=== PATIENT | female | born 1985 | race Caucasian/White ===

== ENCOUNTER 2016-11-05 21:06 | Emergency (ER) | payer OTHER ==
--- NOTE | 2016-11-05 23:47 | DIAGNOSTIC IMAGING REPORT ---
PROCEDURE: US COMPLETE PELVIC W/TRANSVAG INDICATION: PAIN, initial encounter TECHNIQUE: Transabdominal and endovaginal bran scale and color Doppler sonographic images of the female pelvis were obtained. COMPARISON: None. FINDINGS: TRANSABDOMINAL SCANS: Anteverted uterus measures 10.4 x 5.5 x 5 cm. 1.7 cm left mid submucosal fibroid. TRANSVAGINAL SCANS: Endometrium measures 6 mm. Left ovary measures 3 x 2.2 x 2.0 cm with a 1.2 cm hemorrhagic cyst. Right ovary measures 2.6 x 1.0 x 1.0 cm. There is vascular flow to both ovaries. There is physiologic free fluid. IMPRESSION: 1. 1.7 cm fibroid. 2. 1.2 cm left ovarian hemorrhagic cyst.
--- NOTE | 2016-11-06 00:02 | DIAGNOSTIC IMAGING REPORT ---
PROCEDURE: CT ABD/PELVIS WITH CONTRAST CLINICAL INDICATION: ABDOMINAL PAIN TECHNIQUE: 95 ml of Isovue 300 were injected intravenously and axial images were obtained of the entire abdomen and pelvis with sagittal and coronal reformations. COMPARISON: Pelvic ultrasound 11/05/2016 FINDINGS: ABDOMEN: Lung base are clear. Heart size is normal. 8 cm long segment of the splenic flexure and descending colon with wall thickening, adjacent infiltration of the fat and small amount of fluid in the pericolic gutter associated with two diverticula, consistent with diverticulitis. No evidence of free air or abscess. Small bowel is unremarkable. Contracted gallbladder. Liver, pancreas, spleen, adrenal glands and kidneys are normal. Normal abdominal aorta. PELVIS: Normal appendix. Bilateral tubal ligation clips. Fibroid changes of the uterus. 1.3 cm left ovarian cyst with small amount of free fluid the pelvis. Normal bladder. Left L5 spondylolysis. IMPRESSION: 1. 8 cm long segment of the splenic flexure and descending colon inflammatory changes with two diverticula consistent with diverticulitis. No evidence of free air or abscess. Colitis is less likely. 2. 1.3 cm left ovarian cyst with small amount of free fluid in the pelvis 3. Bilateral of tubal ligation 4. Results discussed with ELIZABETH Call All CT scans at this facility use dose modulation, iterative reconstruction, and/or weight-based dosing when appropriate to reduce radiation dose to as low as reasonably achievable.
--- NOTE | 2016-11-06 00:06 | ED NURSING NOTES ---
Clinical Report - Nurses [facility] [address] [place] [address] 11/05/2016 21:08 Patient: STEFFANIE VELAZQUEZ TRIAGE Triage time 21:20. Acuity: LEVEL 3. Chief Complaint: ABDOMINAL PAIN and (RLQ pain 06/06, intermitant.). Alert. --21:27 Deyanira Membreno R.N. 21:20 11/05/16. BP: 123/65. HR: 76. RR: 20. O2 saturation: 100%. Temp: 98.5 F. Pain level now: 06/06. --21:27 Deyanira Membreno R.N. Weight: 65.7 kg stated. Height/Length: 63 inches Per Patient. BMI: 25.7. --21:26 Deyanira Membreno R.N. Medications None. --21:27 Deyanira Membreno R.N. Medication/allergy information source: the patient and patient's family. --21:27 Deyanira Membreno R.N. Allergies None. --21:27 Deyanira Membreno R.N. History Arrived by private vehicle. Historian: patient. Accompanied by family. No primary care physician. This started today. Onset. (8am). She has had abdominal pain. No nausea, vomiting, diarrhea, constipation or fever. Treatment EXPLOSIVE MAN: None. PAST MEDICAL HX: Immunizations: status is unknown. Last normal menstrual period was 3 weeks ago. SOCIAL HX: Smoker- current status unknown. Occasional alcohol use. FALL RISK ASSESSMENT: Fall risk assessment completed. No fall risk identified. NUTRITIONAL RISK ASSESSMENT: The nutritional risk assessment revealed no deficiencies. FUNCTIONAL ASSESSMENT: Functional assessment: no impairments noted. LEARNING NEEDS ASSESSMENT: The learning needs assessment revealed no barriers. SKIN INTEGRITY ASSESSMENT: Skin integrity risk assessment completed. No skin integrity risk identified. --21:27 Deyanira Mebmreno R.N. ADDITIONAL SURGERIES: Oophorectomy. Uterine fibroid . --21:25 Deyanira Membreno R.N. Interventions ID band on patient. To room. --21:27 Deyanira Membreno R.N. PHYSICAL ASSESSMENT Ambulatory to room. Patient gowned. GENERAL / NEURO / PSYCH: Alert. Oriented X 4. Appears in pain and anxious. HEENT: Mucous membranes are pink. RESPIRATORY: Respirations not labored. CVS: Capillary refill less than 2 seconds. GI / : Abdominal tenderness in the right lower quadrant. SKIN: Skin is warm and dry. --21:28 Deyanira Membreno R.N. NURSING PROGRESS NOTES Patient gowned. Head of bed elevated. Two patient identifiers checked. Call light placed in reach. Side rails up x 2. Bed placed in lowest position. Brakes of bed on. Patient ready for evaluation. --21:28 Deyanira Membreno R.N. 21:34 11/05/2016 Site #1 started via IV in the right antecubital space with an 20g angiocath, with aseptic technique and good blood return; one attempt. Blood drawn: rainbow set. Labeled in the presence of the patient and sent to the lab. Saline lock flushed with 10 mL saline. --21:44 Deyanira Membreno R.N. 21:39 11/05/2016 Dilaudid (HYDROmorphone HCl PF) IVP 0.5 mg given over 1 minute(s) via site #1. Allergies verified, confirmed 5 rights and sedative warning given to the patient and patient's mowing machine operator. IV patency established. IV site checked: no pain, redness, or swelling. IV flushed thoroughly pre- and post-medication administration. IVP given by RN. --21:45 Deyanira Membreno R.N. 21:30. Patient ID band checked for patient name: patient confirmed. Instructions provided to collect clean catch urine and patient verbalized understanding. Clean catch urine collected with return of yellow-colored clear urine; odor is normal; sample sent to lab for urinalysis, culture and HCG. Specimen labeled in the presence of the patient. --21:58 Deyanira Membreno R.N. PELVIC EXAM: Pelvic exam performed by PA. Assisted by one nurse. Preparation: pelvic tray and culture medium; patient placed in lithotomy position. Procedure: speculum exam. Specimens collected and sent to lab: wet prep. Status post-procedure: she was stable. Total time of assist / procedure: 15 minutes. --22:00 Deyanira Membreno R.N. Care transferred and report given (CARMINA Weems). --22:18 Deyanira Membreno R.N. 23:43 11/05/2016 Dilaudid (HYDROmorphone HCl PF) IVP 1 mg given over 1 minute(s) via site #1. Allergies verified, confirmed 5 rights and sedative warning given to the patient and patient's family. IV patency established. IV site checked: no pain, redness, or swelling. IV flushed thoroughly pre- and post-medication administration. IVP given by RN. --23:43 Leonel Zuñiga 23:43 11/05/16. BP: 116/67. HR: 74. RR: 18. O2 saturation: 99%. Temp: deferred. Pain level now: 02/04. --23:44 Leonel Zuñiga Patient returned from CT. (23:44). --23:44 Leonel Zuñiga 00:18 11/06/2016 Toradol IVP 30 mg given over 1 minute(s) via site #1. Allergies verified and confirmed 5 rights. IV patency established. IV site checked: no pain, redness, or swelling. IV flushed thoroughly pre- and post-medication administration. IVP given by RN. --00:18 Deysi Castaneda 00:18 11/06/2016 Ciprofloxacin (Ciprofloxacin) PO Capsules 500 mg given. Allergies verified and confirmed 5 rights. --00:18 Deysi Castaneda 00:18 11/06/2016 Metronidazole PO Capsules 500 mg given. Allergies verified and confirmed 5 rights. --00:18 Deysi Castaneda 00:19 11/06/2016 Site #1 removed upon discharge. Catheter intact. Bandaid applied. --00:19 Deysi Castaneda. DISPOSITION / DISCHARGE 00:11/06/16. Condition at departure: stable. The goals identified in the patient's plan of care were met. No learning barriers present. Discharge instructions provided and reviewed with the patient. Reviewed warnings (Do not drive while on sedative medications). Reviewed medication(s) side effects, precautions, dosing and course information. Prescription(s) given to the patient. Reviewed need for increased fluid intake. Activity restrictions (rest) reviewed. Patient verbalized understanding. Written instructions provided in Frisian. ( Follow up with your PCP in three days. Return if symptoms worsen. Patient and spouse had not questions at this time). The patient was discharged by the physician. She was discharged home and accompanied by spouse. She left the Emergency Department ambulatory and via private vehicle. Spouse driving. FALL RISK ASSESSMENT: Fall risk assessment completed. No fall risk identified. --00:22 Deysi Castaneda 00:19 11/06/16. BP: 110/67. HR: 77. RR: 20. O2 saturation: 100% on room air. Temp: 98.1 F (oral). Pain level now: 02/04. --00:22 Deysi Castaneda. Locked/Released at 11/06/2016 0:37 by Deysi Castaneda,
--- NOTE | 2016-11-06 00:06 | ED ORDER SUMMARY ---
..... Patient: STEFFANIE VELAZQUEZ OrderSheet [facility] VisitID: [id number] [address] [place] [address] 30y, F Registration Date/Time: 11/05/2016 ORDER SHEET Weight: 65.7 kg (stated) Allergies: None GENERAL ORDERS: CBC w Diff Urgent (21:23 11/05/2016 EKoroleva P.A.-C) (Ack 21:26 SRedmond) (21:44 SRoberts R.N.) CMP Urgent (21:11/05/2016 EKoroleva P.A.-C) (Ack 21:26 SRedmond) (21:44 SRoberts R.N.) UA-Culture if indicated Urgent (21:11/05/2016 EKoroleva P.A.-C) (Ack 21:26 SRedmond) (21:29 SRoberts R.N.) Urine Urgent (21:11/05/2016 EKoroleva P.A.-C) (Ack 21:26 SRedmond) (21:29 SRoberts R.N.) Pelvic Exam Setup (21:24 11/05/2016 EKoroleva P.A.-C) (Ack 21:26 SRedmond) (22:14 TBowen R.N.) US Pelvic Complete w Transvag Urgent (21:56 11/05/2016 EKoroleva P.A.-C) (Ack 21:58 SRedmond) (23:49 RFay) Wet Prep (Cervix) (c) Urgent (22:43 11/05/2016 EKoroleva P.A.-C) (Ack 22:43 SRedmond) (23:25 SRedmond) CT Abd/Pel w Cont (No) (see lab) Urgent (23:24 11/05/2016 EKoroleva P.A.-C) (Ack 23:25 SRedmond) (23:36 RFay) MEDICATION ORDERS: Ciprofloxacin PO 500 mg (NOW) (00:04 11/06/2016 EKoroleva P.A.-C) (0:18 HSoule) Metronidazole PO 500 mg (NOW) (00:04 11/06/2016 EKoroleva P.A.-C) (0:18 HSoule) IV FLUIDS: Dilaudid IV 0.5 mg (HIGH ALERT MEDICATION, NOW) (21:23 11/05/2016 EKoroleva P.A.-C) (Ack 21:29 SRoberts R.N.) (21:45 SRoberts R.N.) IV Saline Lock (21:23 11/05/2016 EKoroleva P.A.-C) (Ack 21:29 SRoberts R.N.) (21:44 SRoberts R.N.) Dilaudid IV 0.5 mg (HIGH ALERT MEDICATION, NOW) (23:13 11/05/2016 EKoroleva P.A.-C) (23:43 TBowen R.N.) Toradol IV 30 mg (NOW) (00:04 11/06/2016 EKoroleva P.A.-C) (0:18 HSoule) ORDER SHEET NOTES: [Electronically signed by Deysi Castaneda (00:37 11/06/2016)] [Electronically signed by Em Corona P.ADom-C (12:17 11/06/2016)] [Electronically locked/signed by Deysi Castaneda (00:37 11/06/2016)]
--- NOTE | 2016-11-06 00:06 | ED NURSING NOTES ---
Clinical Report - Nurses [facility] [address] [place] [address] 11/05/2016 21:08 Patient: STEFFANIE VELAZQUEZ TRIAGE Triage time 21:20. Acuity: LEVEL 3. Chief Complaint: ABDOMINAL PAIN and (RLQ pain 06/06, intermitant.). Alert. --21:27 Deyanira Membreno R.N. 21:20 11/05/16. BP: 123/65. HR: 76. RR: 20. O2 saturation: 100%. Temp: 98.5 F. Pain level now: 06/06. --21:27 Deyanira Membreno R.N. Weight: 65.7 kg stated. Height/Length: 63 inches Per Patient. BMI: 25.7. --21:26 Deyanira Membreno R.N. Medications None. --21:27 eDyanira Membreno R.N. Medication/allergy information source: the patient and patient's family. --21:27 Deyanira Membreno R.N. Allergies None. --21:27 Deyanira Membreno R.N. History Arrived by private vehicle. Historian: patient. Accompanied by family. No primary care physician. This started today. Onset. (8am). She has had abdominal pain. No nausea, vomiting, diarrhea, constipation or fever. 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 PAST MEDICAL HX: Immunizations: status is unknown. Last normal menstrual period was 3 weeks ago. SOCIAL HX: Smoker- current status unknown. Occasional alcohol use. FALL RISK ASSESSMENT: Fall risk assessment completed. No fall risk identified. NUTRITIONAL RISK ASSESSMENT: The nutritional risk assessment revealed no deficiencies. FUNCTIONAL ASSESSMENT: Functional assessment: no impairments noted. LEARNING NEEDS ASSESSMENT: The learning needs assessment revealed no barriers. SKIN INTEGRITY ASSESSMENT: Skin integrity risk assessment completed. No skin integrity risk identified. --21:27 Deyanira Membreno R.N. ADDITIONAL SURGERIES: Oophorectomy. Uterine fibroid . --21:25 Deyanira Membreno R.N. Interventions ID band on patient. To room. --21:27 Deyanira Membreno R.N. PHYSICAL ASSESSMENT Ambulatory to room. Patient gowned. GENERAL / NEURO / PSYCH: Alert. Oriented X 4. Appears in pain and anxious. HEENT: Mucous membranes are pink. RESPIRATORY: Respirations not labored. CVS: Capillary refill less than 2 seconds. GI / : Abdominal tenderness in the right lower quadrant. SKIN: Skin is warm and dry. --21:28 Deyanira Membreno R.N. NURSING PROGRESS NOTES Patient gowned. Head of bed elevated. Two patient identifiers checked. Call light placed in reach. Side rails up x 2. Bed placed in lowest position. Brakes of bed on. Patient ready for evaluation. --21:28 Deyanira Membreno R.N. 21:34 11/05/2016 Site #1 started via IV in the right antecubital space with an 20g angiocath, with aseptic technique and good blood return; one attempt. Blood drawn: rainbow set. Labeled in the presence of the patient and sent to the lab. Saline lock flushed with 10 mL saline. --21:44 Deyanira Membreno R.N. 21:39 11/05/2016 Dilaudid (HYDROmorphone HCl PF) IVP 0.5 mg given over 1 minute(s) via site #1. Allergies verified, confirmed 5 rights and sedative warning given to the patient and patient's chief lending officer. IV patency established. IV site checked: no pain, redness, or swelling. IV flushed thoroughly pre- and post-medication administration. IVP given by RN. --21:45 Deyanira Membreno R.N. 21:30. Patient ID band checked for patient name: patient confirmed. Instructions provided to collect clean catch urine and patient verbalized understanding. Clean catch urine collected with return of yellow-colored clear urine; odor is normal; sample sent to lab for urinalysis, culture and HCG. Specimen labeled in the presence of the patient. --21:58 Deyanira Membreno R.N. PELVIC EXAM: Pelvic exam performed by PA. Assisted by one nurse. Preparation: pelvic tray and culture medium; patient placed in lithotomy position. Procedure: speculum exam. Specimens collected and sent to lab: wet prep. Status post-procedure: she was stable. Total time of assist / procedure: 15 minutes. --22:00 Deyanira Membreno R.N. Care transferred and report given (CARMINA Weems). --22:18 Deyanira Membreno R.N. 23:43 11/05/2016 Dilaudid (HYDROmorphone HCl PF) IVP 1 mg given over 1 minute(s) via site #1. Allergies verified, confirmed 5 rights and sedative warning given to the patient and patient's family. IV patency established. IV site checked: no pain, redness, or swelling. IV flushed thoroughly pre- and post-medication administration. IVP given by RN. --23:43 Leonel Zuñiga 23:43 11/05/16. BP: 116/67. HR: 74. RR: 18. O2 saturation: 99%. Temp: deferred. Pain level now: 02/04. --23:44 Leonel Zuñiga Patient returned from CT. (23:44). --23:44 Leonel Zuñiga 00:18 11/06/2016 Toradol IVP 30 mg given over 1 minute(s) via site #1. Allergies verified and confirmed 5 rights. IV patency established. IV site checked: no pain, redness, or swelling. IV flushed thoroughly pre- and post-medication administration. IVP given by RN. --00:18 Deysi Castaneda 00:18 11/06/2016 Ciprofloxacin (Ciprofloxacin) PO Capsules 500 mg given. Allergies verified and confirmed 5 rights. --00:18 Deysi Castaneda 00:18 11/06/2016 Metronidazole PO Capsules 500 mg given. Allergies verified and confirmed 5 rights. --00:18 Deysi Castaneda 00:19 11/06/2016 Site #1 removed upon discharge. Catheter intact. Bandaid applied. --00:19 Deysi Castaneda. DISPOSITION / DISCHARGE 00:11/06/16. Condition at departure: stable. The goals identified in the patient's plan of care were met. No learning barriers present. Discharge instructions provided and reviewed with the patient. Reviewed warnings (Do not drive while on sedative medications). Reviewed medication(s) side effects, precautions, dosing and course information. Prescription(s) given to the patient. Reviewed need for increased fluid intake. Activity restrictions (rest) reviewed. Patient verbalized understanding. Written instructions provided in Italian. ( Follow up with your PCP in three days. Return if symptoms worsen. Patient and spouse had not questions at this time). The patient was discharged by the physician. She was discharged home and accompanied by spouse. She left the Emergency Department ambulatory and via private vehicle. Spouse driving. FALL RISK ASSESSMENT: Fall risk assessment completed. No fall risk identified. --00:22 Deysi Castaneda 00:19 11/06/16. BP: 110/67. HR: 77. RR: 20. O2 saturation: 100% on room air. Temp: 98.1 F (oral). Pain level now: 02/04. --00:22 Deysi Castaneda. Locked/Released at 11/06/2016 0:37 by Deysi Castaneda,
--- NOTE | 2016-11-06 00:06 | ED ORDER SUMMARY ---
..... Patient: STEFFANIE VELAZQUEZ OrderSheet [facility] VisitID: [id number] [address] [place] [address] 30y, F Registration Date/Time: 11/05/2016 ORDER SHEET Weight: 65.7 kg (stated) Allergies: None GENERAL ORDERS: CBC w Diff Urgent (21:23 11/05/2016 EKoroleva P.A.-C) (Ack 21:26 SRedmond) (21:44 SRoberts R.N.) CMP Urgent (21:11/05/2016 EKoroleva P.A.-C) (Ack 21:26 SRedmond) (21:44 SRoberts R.N.) UA-Culture if indicated Urgent (21:11/05/2016 EKoroleva P.A.-C) (Ack 21:26 SRedmond) (21:29 SRoberts R.N.) Urine Urgent (21:11/05/2016 EKoroleva P.A.-C) (Ack 21:26 SRedmond) (21:29 SRoberts R.N.) Pelvic Exam Setup (21:24 11/05/2016 EKoroleva P.A.-C) (Ack 21:26 SRedmond) (22:14 TBowen R.N.) US Pelvic Complete w Transvag Urgent (21:56 11/05/2016 EKoroleva P.A.-C) (Ack 21:58 SRedmond) (23:49 RFay) Wet Prep (Cervix) (c) Urgent (22:43 11/05/2016 EKoroleva P.A.-C) (Ack 22:43 SRedmond) (23:25 SRedmond) CT Abd/Pel w Cont (No) (see lab) Urgent (23:24 11/05/2016 EKoroleva P.A.-C) (Ack 23:25 SRedmond) (23:36 RFay) MEDICATION ORDERS: Ciprofloxacin PO 500 mg (NOW) (00:04 11/06/2016 EKoroleva P.A.-C) (0:18 HSoule) Metronidazole PO 500 mg (NOW) (00:04 11/06/2016 EKoroleva P.A.-C) (0:18 HSoule) IV FLUIDS: Dilaudid IV 0.5 mg (HIGH ALERT MEDICATION, NOW) (21:23 11/05/2016 EKoroleva P.A.-C) (Ack 21:29 SRoberts R.N.) (21:45 SRoberts R.N.) IV Saline Lock (21:23 11/05/2016 EKoroleva P.A.-C) (Ack 21:29 SRoberts R.N.) (21:44 SRoberts R.N.) Dilaudid IV 0.5 mg (HIGH ALERT MEDICATION, NOW) (23:13 11/05/2016 EKoroleva P.A.-C) (23:43 TBowen R.N.) Toradol IV 30 mg (NOW) (00:04 11/06/2016 EKoroleva P.A.-C) (0:18 HSoule) ORDER SHEET NOTES: [Electronically signed by Deysi Castaneda (00:37 11/06/2016)] [Electronically signed by Em Corona P.ADom-C (12:17 11/06/2016)] [Electronically locked/signed by Deysi Castaneda (00:37 11/06/2016)]
--- NOTE | 2016-11-06 00:06 | ED CLINICAL REPORT ---
Clinical Report - Physicians/Mid Levels [facility] [address] [place] [address] 11/05/2016 21:08 Patient: STEFFANIE VELAZQUEZ Time Seen: 21:45 Nov 05 2016. Arrived- By private vehicle. Historian- patient. HISTORY OF PRESENT ILLNESS Chief Complaint: ABDOMINAL PAIN. It is described as "pain". Is still present. The patient has had nausea. No vomiting or diarrhea. (abdominal suprapubic area. This morning. Certainly civil reports history of similar with a large 9 cm ovarian cyst, which was drained, as well as with fibroids. Denies any active vaginal bleeding. Denies any urgency or frequency.). REVIEW OF SYSTEMS No constipation, difficulty with urination, pain with urination, urinary frequency or sore throat. No blurred vision or chest pain. All systems otherwise negative, except as recorded above. SOCIAL HISTORY Alcohol use. ADDITIONAL NOTES The nursing notes have been reviewed. PHYSICAL EXAM Vital Signs: 11/05/2016 21:20 BP: 123/65. HR: 76. RR: 20. O2 saturation: 100%. Temp: 98.5 F. Pain level now: 10/10. Appearance: Alert. Eyes: Eyes normal inspection. ENT: Ears normal. Neck: Normal inspection. CVS: Normal heart rate and rhythm. Heart sounds normal. Respiratory: No respiratory distress. Breath sounds normal. Abdomen: Mild tenderness in the suprapubic area. No organomegaly. No mass. Femoral pulses equal. Back: Normal inspection. No CVA tenderness. : Normal external exam. Speculum exam normal. Bimanual exam normal. Skin: Normal skin color. Neuro: Oriented X 3. LABS, X-RAYS, AND EKG Abdominal CT: IMPRESSION: 1. 8 cm long segment of the splenic flexure and descending colon inflammatory changes with two diverticula consistent with diverticulitis. No evidence of free air or abscess. Colitis is less likely. 2. 1.3 cm left ovarian cyst with small amount of free fluid in the pelvis 3. Bilateral of tubal ligation 4. Results discussed with ELIZABETH Call All CT scans at this facility use dose modulation, iterative reconstruction, and/or weight-based dosing when appropriate to reduce radiation dose to as low as reasonably achievable. Electronically Final signed by:Don Edmond MD 11/06/2016 12:01:59 AM. Pelvic Sonogram: IMPRESSION: 1. 1.7 cm fibroid. 2. 1.2 cm left ovarian hemorrhagic cyst. Electronically Final signed by:Don Edmond MD 11/05/2016 11:46:44 PM. Laboratory Tests: UA-Culture if indicated: (FIORDALIZA: 11/05/2016 21:20) ( [facility] [place] 11/05/2016 22:03) Final results Test Result Flag Units (Reference) URINE COLOR YELLOW URINE APPEARANCE CLEAR URINE GLUCOSE NEGATIVE (NEGATIVE) URINE BILIRUBIN NEGATIVE (NEGATIVE) URINE KETONE NEGATIVE (NEGATIVE) URINE SPECIFIC GRAVITY 1.020 (1.010-1.030) URINE PH 6.0 (5.0-8.0) URINE PROTEIN NEGATIVE (NEGATIVE) URINE UROBILINOGEN 0.2 EU/dL (0.2-1.0) URINE NITRITE NEGATIVE (NEGATIVE) URINE BLOOD 2+ (NEGATIVE) URINE LEUK ESTERASE NEGATIVE (NEGATIVE) URINE RBC 3-5 rbc/hpf (0-1) URINE WBC 0-1 wbc/hpf (0-1) URINE EPITHELIAL CELLS 1-3 EPI/hpf (0-5) URINE BACTERIA NONE SEEN (NONE SEEN) URINE COMMENT CULT NOT INDICATED URINE CULTURES ARE SET-UP BASED ON THE FOLLOWING CRITERIA:POSITIVE NITRITEPOSITIVE LEUKOCYTE ESTERASEGREATER THAN 10 WHITE BLOOD CELLSMODERATE (2+) OR GREATER BACTERIA Urine: (FIORDALIZA: 11/05/2016 21:20) ( [facility] [place] 11/05/2016 21:50) Final results Test Result Flag Units (Reference) URINE NEGATIVE CBC w Diff: (FIORDALIZA: 11/05/2016 21:35) ( [facility] [place] 11/05/2016 22:00) Final results Test Result Flag Units (Reference) WHITE BLOOD COUNT 13.4 H K/uL (4.5-11.5) RED BLOOD COUNT 4.18 M/uL (4.00-5.20) HEMOGLOBIN 11.9 L gm/dL (12.0-16.0) HEMATOCRIT 35.8 L % (36.0-46.0) MEAN CELL VOLUME 86 fL (80-100) MEAN CORPUSCULAR HGB 29 pg (26-34) MEAN CORPUSCULAR HGB CONC 33 g/dL (31-37) RED CELL DISTRIBUTION WIDTH 12.9 % (11.6-14.8) PLATELET COUNT 268 K/uL (150-400) NEUTROPHIL % 74.9 % (50-75) LYMPH % 16.9 L % (25-40) MONO % 7.4 % (3-14) EOSINOPHIL % 0.6 % (0-4) BASOPHIL % 0.2 % (0-2) CMP: (FIORDALIZA: 11/05/2016 21:35) ( MsgRcvd 11/05/2016 22:16) Final results Test Result Flag Units (Reference) GLUCOSE 98 mg/dL (70-110) BUN 17 mg/dL (7-18) CREATININE 0.8 mg/dL (0.6-1.3) Estimated GFR >60 mL/min Estimated GFR- >60 mL/min Note: Persistent reduction over 3 months in eGFR<60 mL/min/1.73 m2 defines CKD. Patients with eGFR values>=60 mL/min/1.73 m2 may also have CKD if evidence ofpersistent proteinuria. Additional information may be foundat www.kidney.org. SODIUM 138 mmol/L (136-145) POTASSIUM 3.5 mmol/L (3.5-5.1) CHLORIDE 102 mmol/L (98-107) CARBON DIOXIDE 27 mmol/L (21-32) CALCIUM 8.6 mg/dL (8.5-10.1) TOTAL PROTEIN 7.4 g/dL (6.4-8.2) ALBUMIN 3.7 g/dL (3.3-5.0) BILIRUBIN, TOTAL 0.4 mg/dL (0.0-1.0) ALKALINE PHOSPHATASE 66 U/L (46-116) AST (SGOT) 20 U/L (15-37) ALT (SGPT) 15 U/L (12-78) Wet Prep: (FIORDALIZA: 11/05/2016 21:50) ( MsgRcvd 11/05/2016 23:09) Final results SPECIMEN DESCRIPTION: C Test Result Flag Units (Reference) WET MOUNT CLUE CELLS:: NONE EPITHELIAL CELLS: FEW -- SOURCE?: CERVIX WHITE BLOOD CELLS: FEW TRICHOMONAS:: NONE -- YEAST:: NONE . PROGRESS AND PROCEDURES Course of Care: Abd: During the time in the ED, the following DDX were considered: acute surgical abdomen, hemodynamic or metabolic instability, dehydration, gastroenteritis-viral, food borne, or bacterial, food intolerance, irritable or inflammatory bowel, infection, sepsis. Non septic female, no signs of tachycardia, cyst with signs of acute diverticulitis. Pt stable. Pt with no ectopic/ signs of , no signs of torsion. No signs of TOA. No signs of acute surgical abdomen. Mild hematuria, however her pain is suprapubic and reproducible, rather than classic flank pain and without associated nausea. Pt to start strict diet/ abx, and to f/u outpatient. 11/06/2016 00:19 BP: 110/67. HR: 77. RR: 20. O2 saturation: 100%. Temp: 98.1 F. Pain level now: 6/10. Patient is stable. The patient's symptoms are now gone. Patient/family counseled. Disposition: Discharged. Condition: good. CLINICAL IMPRESSION Acute diverticulitis of the colon. No perforation. Ovarian cyst (Left. Hemorrhagic Cyst). INSTRUCTIONS No strenuous activity. Rest. Do not work for three days. Drink plenty of fluids. (take probiotic). Prescription Medications: Hydrocodone/APAP 7.5mg / 325mg: take 1 orally every 6 hours as needed for pain. Dispense twenty (20). No refill. Zofran (orally disintegrating tablets) 4 mg: take 1 orally every 6 hours for 3 days as needed for nausea. Dispense ten (10). No refill. Substitution is permissible. Cipro 500 mg: take 1 tab orally every 12 hours for 10 days. Dispense twenty (20). No refills. Substitution is permissible. Metronidazole 500 mg: Take 1 tablet orally every 8 hours for 10 days. No refill Follow-up: Follow up with your doctor in three days. (Electronically signed by Em Corona P.A.-C 11/06/2016 12:17)
--- NOTE | 2016-11-06 12:18 | ED MED RECONCILIATION SUMMARY ---
Patient: STEFFANIE VELAZQUEZ Medication Reconciliation Report [facility] VisitID: [id number] [address] [place] [address] 30y, F Registration Date/Time: 11/05/2016 Weight: 65.7 kg Height/Length: 63 in. BMI: 25.7 ALLERGIES: None The patient's Home Medications are listed below: NONE. The source(s) of the original Home Medication information: patient patient's family member The following Medications were given to the patient in the Emergency Department: Dilaudid [IVP] IVP 0.5 mg, administered: 11/05/2016 9:39:00 PM Dilaudid [IVP] IVP 1 mg, administered: 11/05/2016 11:43:00 PM Toradol [IVP] IVP 30 mg, administered: 11/06/2016 12:18:00 AM Ciprofloxacin [PO] PO 500 mg, administered: 11/06/2016 12:18:00 AM Metronidazole [PO] PO 500 mg, administered: 11/06/2016 12:18:00 AM The following Medications were prescribed to the patient: Hydrocodone/APAP 7.5mg / 325mg: take 1 orally every 6 hours as needed for pain. Dispense twenty (20). No refill. -- Em Corona, P.A.-Solitario Zofran (orally disintegrating tablets) 4 mg: take 1 orally every 6 hours for 3 days as needed for nausea. Dispense ten (10). No refill. Substitution is permissible. -- Em Corona, P.A.-Solitario Cipro 500 mg: take 1 tab orally every 12 hours for 10 days. Dispense twenty (20). No refills. Substitution is permissible. -- Em Corona, P.A.-C Metronidazole 500 mg: Take 1 tablet orally every 8 hours for 10 days. No refill -- Em Corona P.A.-C
--- NOTE | 2016-11-06 12:18 | ED MAR SUMMARY ---
..... Medication Administration Record [facility] [address] [place] [address] Patient: STEFFANIE VELAZQUEZ Visit ID: [id number] 30y, F Weight: 65.7 kg Height/Length: 63 in BMI: 25.7 ALLERGIES: None Given 21:39 11/05/2016 Deyanira Membreno R.N. Medication Administered: DILAUDID [IVP] (HYDROMORPHONE HCL PF), Dose: 0.5 mg IVP over 1 minute(s), Site: #1 right AC. Medication Ordered: Dilaudid IV 0.5 mg (HIGH ALERT MEDICATION, NOW). Given 23:43 11/05/2016 Leonel Zuñiga Medication Administered: DILAUDID [IVP] (HYDROMORPHONE HCL PF), Dose: 1 mg IVP over 1 minute(s), Site: #1 right AC. Medication Ordered: Dilaudid IV 0.5 mg (HIGH ALERT MEDICATION, NOW). Given :11/06/2016 Deysi Castaneda, Medication Administered: TORADOL [IVP], Dose: 30 mg IVP over 1 minute(s), Site: #1 right AC. Medication Ordered: Toradol IV 30 mg (NOW). Given :11/06/2016 Deysi Castaneda, Medication Administered: CIPROFLOXACIN [PO] (CIPROFLOXACIN), Dose: 500 mg Capsules PO. Medication Ordered: Ciprofloxacin PO 500 mg (NOW). Given :11/06/2016 Deysi Castaneda, Medication Administered: METRONIDAZOLE [PO], Dose: 500 mg Capsules PO. Medication Ordered: Metronidazole PO 500 mg (NOW).
--- NOTE | 2016-11-06 12:18 | ED DISCHARGE INSTRUCTIONS ---
Patient: STEFFANIE VELAZQUEZ General Instructions [facility] VisitID: [id number] [address] [place] [address] 30y, F Registration Date/Time: 11/05/2016 Acute diverticulitis of the colon. No perforation. Ovarian cyst (Left. Hemorrhagic Cyst). INSTRUCTIONS No strenuous activity. Rest. Do not work for three days. Drink plenty of fluids. (take probiotic). Prescription Medications: Hydrocodone/APAP 7.5mg / 325mg: take 1 orally every 6 hours as needed for pain. Dispense twenty (20). No refill. Zofran (orally disintegrating tablets) 4 mg: take 1 orally every 6 hours for 3 days as needed for nausea. Dispense ten (10). No refill. Substitution is permissible. Cipro 500 mg: take 1 tab orally every 12 hours for 10 days. Dispense twenty (20). No refills. Substitution is permissible. Metronidazole 500 mg: Take 1 tablet orally every 8 hours for 10 days. No refill Follow-up: Follow up with your doctor in three days. ADDITIONAL INFORMATION Diverticulitis Some people develop pouches along the wall of the colon as they get older. The pouches,called diverticuli, usually cause no symptoms. If the pouches become blocked, an infection may occur known as diverticulitis. This causes lower abdominal pain and fever. If not treated, it can become a serious condition, causing an abscess to form inside the pouch. The abscess may block the instestinal tract even or rupture, spreading infection throughout the abdomen. When treatment is started early, oral antibiotics alone may be enough to cure diverticulitis. This method is tried first. However, if you do not improve or if your condition worsens while you are trying oral antibiotics, it will be necessary to admit you to the hospital for IV antibiotics. Severe cases may require surgery. Home care The following guidelines will help you care for your diverticulitis at home: During the acute illness, rest and follow a low-fiber diet: Foods to Include: flake cereal, mashed potatoes, pancakes, waffles, pasta, white bread, rice, applesauce, bananas, eggs, meat, fish, poultry, tofu, cooked vegetables. Take antibiotics exactly as directed. Do not miss any doses or stop taking the medication, even if you feel better. Monitor your temperature and report any rising temperature to your doctor. Preventing future attacks Once you have had an episode of diverticulitis, you are at risk of having a recurrence. After you have recovered from this episode, you may be able to reduce your risk by eating a high-fiber diet (2035 gm/day of fiber). This cleans out the colon pouches that already exist and prevent new ones from forming. Foods high in fiber includes fresh fruits and edible peelings, raw or lightly cooked vegetables, whole grain cereals and breads, dried beans and peas, bran. Follow-up care Follow up with your doctor as advised or sooner if you are not improving in the nexttwo days. When to seek medical care Get prompt medical attention if any of the following occur: Fever of 100.4F (38C) or higher, or as directed by your health care provider Repeated vomiting or swelling of the abdomen Weakness, dizziness, light-headedness Increasing abdominal pain that becomes severe or spreads to your back Pain that moves to the right lower abdomen Rectal bleeding (red, black or maroon color of the stools) Unexpected vaginal bleeding Ovarian Cyst The ovary is a small organ located on each side of the uterus. During each menstrual cycle a tiny egg sac forms in the ovary. If the egg is released but does not occur, this sac usually dissolves. Sometimes, the sac may fill with fluid. It then enlarges into a painful cyst. Usually the cyst will rupture or shrink on its own. In either case, the pain gradually goes away over the next 1-3 days. If the cyst does not shrink or rupture, it may cause continued pain. Home Care: Rest in bed and avoid heavy exertion until you are feeling better. Heat to the lower abdomen usually helps (heating pad or hot packs -- a small towel soaked in hot water). You may use acetaminophen (Tylenol) or ibuprofen (Motrin, Advil) to control pain, unless another pain medicine was prescribed. [NOTE: If you have chronic liver or kidney disease or ever had a stomach ulcer or GI bleeding, talk with your doctor before using these medicines.] Follow Up: See your doctor within the next 2-3 days if your pain doesnt improve. Otherwise, follow up with your doctor after your next period or as directed by our staff. Get Prompt Medical Attention if any of the following occur: Pain worsens or fails to respond to the above measures Fever of 100.4F (38C) or higher, or as directed by your healthcare provider Heavy vaginal bleeding (soaking one pad an hour for three hours) You feel weak or dizzy Fainting Passage of a pink or bran tissue with menstrual bleeding [place] Diet A bland diet is used for patients with an upset stomach. It consists of foods that are mild and easy to digest. It is better to eat small frequent meals rather than three large meals a day. BEVERAGES OK: Fruit juices, non-caffeinated teas and coffee, non-carbonated rankin AVOID: Carbonated beverage, caffeinated tea and coffee, all alcoholic beverages BREAD OK: Refined white, wheat or rye bread, santos or soda crackers, [place] toast, plain rolls, bagels AVOID: Whole-grain bread CEREAL OK: Refined cereals: cooked or ready to eat AVOID: Whole grain cereals and granola, or those containing bran, seeds or nuts DESSERTS OK: Peanut butter and all others except those to "avoid" AVOID: Chocolate, cocoa, coconut, popcorn, nuts, seeds, jam, marmalade FRUITS OK: Canned, cooked, frozen or fresh fruits without seeds or tough skin AVOID: Olives, skin and seeds of fruit MEATS OK: All fresh or preserved meat, fish and fowl AVOID: Any that are prepared with those spices to "avoid" CHEESE & EGGS OK: Eggs, cottage cheese, cream cheese, other cheeses AVOID: All cheeses made with those spices to "avoid" POTATOES & PASTA OK: Potato, rice, macaroni, noodles, spaghetti AVOID: None SOUPS OK: All soups without heavy seasoning AVOID: Soups made with those spices to "avoid" VEGETABLES OK: Canned, cooked, fresh or frozen mildly flavored vegetables without seeds, skins or coarse fiber AVOID: Vegetables prepared with those spices to "avoid"; skin and seeds of vegetables and those with coarse fiber SPICES OK: Salt, lemon and [place] juice, vinegar, all extracts, josh, cinnamon, thyme, mace, allspice, paprika AVOID: Golden powder, cloves, pepper, seed spices, garlic, gravy pickles, highly seasoned salad dressings Clear Liquid Diet Clear liquids are any liquid that you can see through as well as those that are very easy to digest. This is used while the body is recovering from irritation or infection of the stomach or intestinal tract. It may also be used before special procedures or surgery. This diet is to be used no more than three days. You may include the following items. Adults Adults should drink a total of 23 quarts of liquid per day. It may be easier to drink small frequent servings rather than a few large ones. Liquids can include: Fruit juices.Strained orange juice or lemonade (no pulp), apple, grape and cranberry juice, clear fruit drinks, sports drinks Beverages.Sport drinks, sodas, mineral water (plain or flavored), tea, black coffee, liquid gelatin (add twice the recommended amount of water) Soups.Clear broth, consomm, bouillon Desserts.Plain gelatin, popsicles, fruit juice bars Children Over 2 years old The following liquids are acceptable for children over age 2: Fruit juices.Strained orange juice or lemonade (no pulp), apple, grape and cranberry juice, clear fruit drinks Beverages. Sports drinks, sodas, mineral water (plain or flavored), tea, liquid gelatin (add twice the recommended amount of water) Soups. Clear broth, consomm, bouillon Desserts. Plain gelatin, popsicles, fruit juice bars Children under 2 years old Oral rehydration fluids such are available at drug stores and most grocery stores without a prescription. Hydrocodone Bitartrate, Acetaminophen Oral tablet What is this medicine? ACETAMINOPHEN; HYDROCODONE (a set a LUIS DANIEL laisha fen; deborah droe KOE done) is a pain reliever. It is used to treat mild to moderate pain. How should I use this medicine? Take this medicine by mouth. Swallow it with a full glass of water. Follow the directions on the prescription label. If the medicine upsets your stomach, take the medicine with food or milk. Do not take more than you are told to take. Talk to your hospital admitting clerk regarding the use of this medicine in children. This medicine is not approved for use in children. What side effects may I notice from receiving this medicine? Side effects that you should report to your doctor or health patient care representative as soon as possible: allergic reactions like skin rash, itching or hives, swelling of the face, lips, or tongue breathing problems confusion feeling faint or lightheaded, falls stomach pain yellowing of the eyes or skin Side effects that usually do not require medical attention (report to your doctor or health patient care representative if they continue or are bothersome): nausea, vomiting stomach upset What may interact with this medicine? alcohol antihistamines isoniazid medicines for depression, anxiety, or psychotic disturbances medicines for sleep muscle relaxants naltrexone narcotic medicines (opiates) for pain phenobarbital ritonavir tramadol What if I miss a dose? If you miss a dose, take it as soon as you can. If it is almost time for your next dose, take only that dose. Do not take double or extra doses. Where should I keep my medicine? Keep out of the reach of children. This medicine can be abused. Keep your medicine in a safe place to protect it from theft. Do not share this medicine with anyone. Selling or giving away this medicine is dangerous and against the law. Store at room temperature between 15 and 30 degrees C (59 and 86 degrees F). Protect from light. Keep container tightly closed. Throw away any unused medicine after the expiration date. Discard unused medicine and used packaging carefully. Pets and children can be harmed if they find used or lost packages. What should I tell my health care provider before I take this medicine? They need to know if you have any of these conditions: brain tumor Crohn's disease, inflammatory bowel disease, or ulcerative colitis drink more than 3 alcohol-containing drinks per day drug abuse or addiction head injury heart or circulation problems kidney disease or problems going to the bathroom liver disease lung disease, asthma, or breathing problems an unusual or allergic reaction to acetaminophen, hydrocodone, other opioid analgesics, other medicines, foods, dyes, or preservatives or trying to get breast-feeding What should I watch for while using this medicine? Tell your doctor or health patient care representative if your pain does not go away, if it gets worse, or if you have new or a different type of pain. You may develop tolerance to the medicine. Tolerance means that you will need a higher dose of the medicine for pain relief. Tolerance is normal and is expected if you take the medicine for a long time. Do not suddenly stop taking your medicine because you may develop a severe reaction. Your body becomes used to the medicine. This does NOT mean you are addicted. Addiction is a behavior related to getting and using a drug for a non-medical reason. If you have pain, you have a medical reason to take pain medicine. Your doctor will tell you how much medicine to take. If your doctor wants you to stop the medicine, the dose will be slowly lowered over time to avoid any side effects. You may get drowsy or dizzy when you first start taking the medicine or change doses. Do not drive, use machinery, or do anything that may be dangerous until you know how the medicine affects you. Stand or sit up slowly. There are different types of narcotic medicines (opiates) for pain. If you take more than one type at the same time, you may have more side effects. Give your health care provider a list of all medicines you use. Your doctor will tell you how much medicine to take. Do not take more medicine than directed. Call emergency for help if you have problems breathing. The medicine will cause constipation. Try to have a bowel movement at least every 2 to 3 days. If you do not have a bowel movement for 3 days, call your doctor or health patient care representative. Too much acetaminophen can be very dangerous. Do not take Tylenol (acetaminophen) or medicines that contain acetaminophen with this medicine. Many non-prescription medicines contain acetaminophen. Always read the labels carefully. Metronidazole Oral tablet What is this medicine? METRONIDAZOLE (me troe NI da zole) is an antiinfective. It is used to treat certain kinds of bacterial and protozoal infections. It will not work for colds, flu, or other viral infections. How should I use this medicine? Take this medicine by mouth with a full glass of water. Follow the directions on the prescription label. Take your medicine at regular intervals. Do not take your medicine more often than directed. Take all of your medicine as directed even if you think you are better. Do not skip doses or stop your medicine early. Talk to your hospital admitting clerk regarding the use of this medicine in children. Special care may be needed. What side effects may I notice from receiving this medicine? Side effects that you should report to your doctor or health patient care representative as soon as possible: allergic reactions like skin rash or hives, swelling of the face, lips, or tongue confusion, clumsiness difficulty speaking discolored or sore mouth dizziness fever, infection numbness, tingling, pain or weakness in the hands or feet trouble passing urine or change in the amount of urine redness, blistering, peeling or loosening of the skin, including inside the mouth seizures unusually weak or tired vaginal irritation, dryness, or discharge Side effects that usually do not require medical attention (report to your doctor or health patient care representative if they continue or are bothersome): diarrhea headache irritability metallic taste nausea stomach pain or cramps trouble sleeping What may interact with this medicine? Do not take this medicine with any of the following medications: alcohol or any product that contains alcohol amprenavir oral solution cisapride disulfiram dofetilide dronedarone paclitaxel injection pimozide ritonavir oral solution sertraline oral solution sulfamethoxazole-trimethoprim injection thioridazine ziprasidone This medicine may also interact with the following medications: cimetidine lithium other medicines that prolong the QT interval (cause an abnormal heart rhythm) phenobarbital phenytoin warfarin What if I miss a dose? If you miss a dose, take it as soon as you can. If it is almost time for your next dose, take only that dose. Do not take double or extra doses. Where should I keep my medicine? Keep out of the reach of children. Store at room temperature below 25 degrees C (77 degrees F). Protect from light. Keep container tightly closed. Throw away any unused medicine after the expiration date. What should I tell my health care provider before I take this medicine? They need to know if you have any of these conditions: anemia or other blood disorders disease of the nervous system fungal or yeast infection if you drink alcohol containing drinks liver disease seizures an unusual or allergic reaction to metronidazole, or other medicines, foods, dyes, or preservatives or trying to get breast-feeding What should I watch for while using this medicine? Tell your doctor or health patient care representative if your symptoms do not improve or if they get worse. You may get drowsy or dizzy. Do not drive, use machinery, or do anything that needs mental alertness until you know how this medicine affects you. Do not stand or sit up quickly, especially if you are an older patient. This reduces the risk of dizzy or fainting spells. Avoid alcoholic drinks while you are taking this medicine and for three days afterward. Alcohol may make you feel dizzy, sick, or flushed. If you are being treated for a sexually transmitted disease, avoid sexual contact until you have finished your treatment. Your sexual partner may also need treatment. You have been given the following additional information: Diverticulitis Ovarian Cyst Diet, [place] (Adult) Diet, Clear Liquid Hydrocodone Bitartrate, Acetaminophen Oral tablet Metronidazole Oral tablet No strenuous activity. Rest. Do not work for three days. (Electronically signed by Em Corona P.A.-C 11/06/2016 12:17)
--- NOTE | 2016-11-06 12:18 | ED MED RECONCILIATION SUMMARY ---
Patient: STEFFANIE VELAZQUEZ Medication Reconciliation Report [facility] VisitID: [id number] [address] [place] [address] 30y, F Registration Date/Time: 11/05/2016 Weight: 65.7 kg Height/Length: 63 in. BMI: 25.7 ALLERGIES: None The patient's Home Medications are listed below: NONE. The source(s) of the original Home Medication information: patient patient's family member The following Medications were given to the patient in the Emergency Department: Dilaudid [IVP] IVP 0.5 mg, administered: 11/05/2016 9:39:00 PM Dilaudid [IVP] IVP 1 mg, administered: 11/05/2016 11:43:00 PM Toradol [IVP] IVP 30 mg, administered: 11/06/2016 12:18:00 AM Ciprofloxacin [PO] PO 500 mg, administered: 11/06/2016 12:18:00 AM Metronidazole [PO] PO 500 mg, administered: 11/06/2016 12:18:00 AM The following Medications were prescribed to the patient: Hydrocodone/APAP 7.5mg / 325mg: take 1 orally every 6 hours as needed for pain. Dispense twenty (20). No refill. -- Em Corona, P.A.-Solitario Zofran (orally disintegrating tablets) 4 mg: take 1 orally every 6 hours for 3 days as needed for nausea. Dispense ten (10). No refill. Substitution is permissible. -- Em Corona, P.A.-Solitario Cipro 500 mg: take 1 tab orally every 12 hours for 10 days. Dispense twenty (20). No refills. Substitution is permissible. -- Em Corona, P.A.-C Metronidazole 500 mg: Take 1 tablet orally every 8 hours for 10 days. No refill -- Em Corona P.A.-C
--- NOTE | 2016-11-06 12:18 | ED MAR SUMMARY ---
..... Medication Administration Record [facility] [address] [place] [place] [address] Patient: STEFFANIE VELAZQUEZ Visit ID: [id number] 30y, F Weight: 65.7 kg Height/Length: 63 in BMI: 25.7 ALLERGIES: None Given 21:39 11/05/2016 Deyanira Membreno R.N. Medication Administered: DILAUDID [IVP] (HYDROMORPHONE HCL PF), Dose: 0.5 mg IVP over 1 minute(s), Site: #1 right AC. Medication Ordered: Dilaudid IV 0.5 mg (HIGH ALERT MEDICATION, NOW). Given 23:43 11/05/2016 Leonel Zuñiga Medication Administered: DILAUDID [IVP] (HYDROMORPHONE HCL PF), Dose: 1 mg IVP over 1 minute(s), Site: #1 right AC. Medication Ordered: Dilaudid IV 0.5 mg (HIGH ALERT MEDICATION, NOW). Given :11/06/2016 Deysi Castaneda, Medication Administered: TORADOL [IVP], Dose: 30 mg IVP over 1 minute(s), Site: #1 right AC. Medication Ordered: Toradol IV 30 mg (NOW). Given :11/06/2016 Deysi Castaneda, Medication Administered: CIPROFLOXACIN [PO] (CIPROFLOXACIN), Dose: 500 mg Capsules PO. Medication Ordered: Ciprofloxacin PO 500 mg (NOW). Given :11/06/2016 Deysi Castaneda, Medication Administered: METRONIDAZOLE [PO], Dose: 500 mg Capsules PO. Medication Ordered: Metronidazole PO 500 mg (NOW).
== END 2016-11-06 00:23 | disposition home or self-care (01) ==
LOC: ED SRH 21:06
DX: K57.92 Diverticulitis of intestine, part unspecified, without perforation or abscess without bleeding (principal); N83.202 Unspecified ovarian cyst, left side
CPT/HCPCS: 90004; 90100; 90195; 93070; 95059